=== PATIENT | female | born 1945 | race Caucasian/White ===

== ENCOUNTER → 2020-02-27 09:12 | Outpatient (CLI) | payer MEDICARE, SELFPAY ==
--- NOTE | ~2020-02-27 | XR_ITS ---
EXAMINATION: XR knee RT 3V DATE: 02/27/2020 10:18 INDICATION: Primary localized osteoarthritis of right knee. TECHNIQUE: 3 views of right knee were obtained. COMPARISON: Right knee MRI 10/10/2015 FINDINGS: Bone alignment is normal. There is moderate osteoarthritis of medial compartment and mild o steoarthritis of lateral and patellofemoral compartments. There is chondrocalcinosis of the menisci. No knee joint effusion. IMPRESSION: 1. Moderate right knee osteoarthritis. Reviewed, dictated and finalized at location A.
== END ==
PROVIDERS: PCP Internal Medicine; Visit Provider Internal Medicine
DX: M17.11 Unilateral primary osteoarthritis, right knee (principal)
CPT/HCPCS: 73562

== ENCOUNTER 2020-04-01 10:00 | Outpatient (RCR) | payer MEDICARE, SELFPAY ==
--- NOTE | 2020-03-20 15:48 | PTOPEVAL ---
Thank you for referring Litzy Goss to [facility].? The patient is scheduled to be seen for therapy? 2 x/week for 5 weeks. Please review, sign, date and return this plan of care KATHY. I agree with and certify that the following plan of care is medically necessary. Referring Physician Date Attending Provider: Tiffany Marrero, Referring Provider: *PT Outpatient Evaluation Start: 03/20/20 14:26 Freq: Status: Active Protocol: Document 03/20/20 14:27 SYLVIA (Rec: 03/20/20 15:32 SYLVIA [id number]) Therapy Assessment Status Assessment Status Assessment Status Evaluation Outpatient Past Medical History Past Medical History Source of Past Medical History Patient,Recalled from Previous Visit, Confirmed with Patient /Family Neurological History Hx Neurological Disorders No Significant History Cardiovascular History Hx Cardiac Disorders No Significant History Respiratory History Hx Asthma Yes Gastrointestinal History Hx Gastrointestinal Disorders No Significant History Genitourinary History Hx Genitourinary Disorders No Significant History Musculoskeletal History Hx Other Musculoskeletal Disorders Yes: heel and toe pain/burning sensation Evaluation Information Problem Diagnosis OA of right knee and medial meniscus tear Onset 02/18/20 Cause unknown Subjective Information She was helping her daughter Query Text:As Reported By Patient/ move, but no known injury. Family She reports limitations with ADL's, squating, bending, walking and steps. She c/o a sharp pain in the posterior aspect of right knee. She is using an oanh wrap on her knee. She is supporting the knee with a pillow at night maintaining a flexed position. Reports increased pain with driving to knee in prolonged flexed position. She likes to perform housework and yardwork. She has increased pain with the IADL's . She walks her dog daily for 8-10 blocks. She was attending [employer] classes 2x/wk prior to COVID. Diagnostic Tests X-Rays For This Problem Yes: here is moderate osteoarthritis
--- NOTE | 2020-04-03 13:56 | PCPTNOTE ---
Patient called & cancelled scheduled appointment this date due to having a Dr's appointment.
--- NOTE | 2020-04-23 08:29 | PCPTNOTE ---
Admitting Provider: Attending Provider: Tiffany Marrero, Patient:Litzy Goss Date of :1945 Discharge Note Patient has not returned for any further treatments since 04/01/2020, therefore she will be discharged at this time. Patient?s initial visit was on 03/20/2020 14:30 and she had a total of 2 visits with the remaining of her therapy visits cancelled. The goals have been not met due to limited visits attended. Thank you for referring this patient to [facility]. Please review, sign, date and return this discharge summary KATHY. I have been updated about the patient's current status and I agree with discharge from the above service at this time. Referring Physician Date
== END 2020-04-23 09:37 | disposition home or self-care (01) ==
LOC: ANHPT 10:00
PROVIDERS: PCP Internal Medicine; Visit Provider Internal Medicine
DX: M17.11 Unilateral primary osteoarthritis, right knee (principal); M23.203 Derangement of unspecified medial meniscus due to old tear or injury, right knee
CPT/HCPCS: 97035; 97110; 97112; 97140; 97162

== ENCOUNTER → 2020-04-15 12:49 | Outpatient (CLI) | payer MEDICARE, SELFPAY ==
--- NOTE | ~2020-04-15 | MR_ITS ---
EXAMINATION: MR knee RT wo con DATE: 04/15/2020 13:31 INDICATION: Right knee pain. TECHNIQUE: Magnetic resonance imaging (MRI) of the right knee was performed without intravenous contr ast. Sequences included axial PD-weighted FS FSE, coronal PD-weighted FSE and PD-weighted FS FSE, sag ittal PD-weighted FSE, and sagittal T2-weighted FS FSE. COMPARISON: Right knee radiographs 02/27/2020 FINDINGS: Medial compartment: There is a radial tear of posterior horn of medial meniscus. There is full-thickness cartilage loss o f femoral condyle involving the central articular surface. There is partial-thickness cartilage loss of tibial condyle, deep at the central and anterior articular surface with minimal subchondral edema- like marrow signal intensity. Osteophytes are noted. Lateral compartment: The lateral meniscus is normal. There is cartilage surface irregularity of tibial condyle and femoral condyle. Tiny marginal osteophytes are noted. Patellofemoral compartment: There is full-thickness cartilage loss of patella involving the medial facet. There is cartilage surf oanh irregularity of trochlea. Marginal osteophytes are noted. Ligaments and tendons: The anterior and posterior cruciate ligaments are normal. Medial collateral ligament and lateral sera ateral ligament complex are normal. There is mild patellar tendinopathy. Fluid: There is a small knee joint effusion. There is a small Mack's cyst. IMPRESSION: 1. Severe chondrosis of medial and patellofemoral compartments and mild chondrosis of lateral compart ment. 2. Tear of medial meniscus. 3. Small knee joint effusion. 4. Small Mack's cyst. Reviewed, dictated and finalized at location A. 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 Severe chondrosis of medial and patellofemoral compartments and mild chondro sis of lateral compartment. 2. Tear of medial meniscus. 3. Small knee joint effusion. 4. Small Mack's cyst.
== END ==
PROVIDERS: PCP Internal Medicine; Visit Provider Internal Medicine
DX: M25.561 Pain in right knee (principal); S82.143A Displaced bicondylar fracture of unspecified tibia, initial encounter for closed fracture; M22.2X1 Patellofemoral disorders, right knee; S83.241A Other tear of medial meniscus, current injury, right knee, initial encounter; M25.461 Effusion, right knee; M71.21 Synovial cyst of popliteal space [Baker], right knee
CPT/HCPCS: 73721

== ENCOUNTER 2020-12-24 11:30 | Outpatient (RCR) | payer MEDICARE, SELFPAY ==
--- NOTE | 2020-09-29 12:24 | PTOPEVAL ---
PHYSICAL THERAPY EVALUATION AND PLAN OF CARE Thank you for referring Litzy Goss to [facility] [place].? The patient is scheduled to be seen for therapy?2x/week for 4 weeks following right TKA. Please review, sign, date and return this plan of care KATHY. I agree with and certify that the following plan of care is medically necessary. Referring Physician Date Attending Provider: Osmany Medley, MD Evaluation Outpatient Past Medical History Neurological History Hx Neurological Disorders No Significant History Cardiovascular History Hx Cardiac Disorders No Significant History Respiratory History Hx Asthma Yes Gastrointestinal History Hx Gastrointestinal Disorders No Significant History Genitourinary History Hx Genitourinary Disorders No Significant History Musculoskeletal History Hx Other Musculoskeletal Disorders Yes: heel and toe pain/burning sensation Diagnosis right TKA Onset 09/22/20 Subjective Information right TKA due to knee OA. She Query Text:As Reported By Patient/ leads an active lifestyle with Family a large yard which she enjoys to work in. Self Report Pain Assessment Right Knee(s) Reported Pain Level 6 Pain Frequency Acute,Continuous Lowest Pain Intensity 2 Greatest Pain Intensity 7 Additional Pain Comments post treatment: 5/10 pain in right knee. Pain Score Pain Score 6: Self Report Interventions Used Interventions Used By Clinicians Exercise,Manual Therapy Techniques Pain Relief Interventions Used By Ice,Medication Patient Lower Extremity Range of Motion Knee Range of Motion Right Knee Flexion Range of Motion - Active 66 Knee Extension Range of Motion - Active -16 Query Text: Lower Extremity Muscle Strength Testing Hip Strength Right Hip Flexion Strength 4- Good - Hip Extension Strength 3+ Fair + Hip Abduction Strength 3+ Fair + Knee Strength Right Knee Flexion Strength 3+ Fair + Knee Extension Strength 3- Fair - Edema Assessment Location Right Knee(s) Type Pitting Edema Degree 3+ (4-6 mm) Gait Assessment Gait Assessment Ambulation Assistive Devices Cane Weight Bearing Status - Left Full Weight Bearing Status - Right As Tolerated Maintains Weight Bearing Status Yes Weight Bearing Comment cues for using cane in left hand and coordination Ambulation Distance 143 Query Text:(Feet) Ambulation Speed (feet/second) 1.9 Ambulation Destination In Gym Ambulation Ability
--- NOTE | 2020-10-27 15:10 | PTOPEVAL ---
PHYSICAL THERAPY PROGRESS REPORT AND PLAN OF CARE UPDATE Thank you for referring Litzy Goss to [facility] [place].? The patient is scheduled to be seen for therapy? 2x/week for 4 weeks. Please review, sign, date and return this plan of care KATHY. I agree with and certify that the following plan of care is medically necessary. Referring Physician Date Attending Provider: Osmany Medley, MD Progress Diagnosis right TKA Onset 09/22/20 Subjective Information steadily increasing activity Query Text:As Reported By Patient/ level at home; reports worst Family pain at night and reports some insomia. She does not know if it is because of the pain or because she is no longer taking norco medication. Self Report Pain Assessment Right Knee(s) Reported Pain Level 2 Pain Description Throbbing,Tightness Pain Frequency Acute,Intermittent Lowest Pain Intensity 2 Greatest Pain Intensity 9 Pain Score Pain Score 2: Self Report Interventions Used Interventions Used By Clinicians Electrical Stimulation, Exercise,Manual Therapy Techniques Pain Relief Interventions Used By Ice,Medication Patient Lower Extremity Range of Motion Knee Range of Motion Right Knee Flexion Range of Motion - Active 118 Knee Extension Range of Motion - Active -11 Query Text: Lower Extremity Muscle Strength Testing Hip Strength Right Hip Flexion Strength 5 Normal Hip Extension Strength 4 Good Hip Abduction Strength 4 Good Hip Lateral Rotation Strength 3+ Fair + Knee Strength Right Knee Flexion Strength 4+ Good + Knee Extension Strength 4- Good - Palpation Assessment Palpation Palpation tender to palpation along right ITB Gait Assessment Gait Assessment Ambulation Assistive Devices None Weight Bearing Status - Left Full Weight Bearing Status - Right As Tolerated Maintains Weight Bearing Status Yes Ambulation Destination In Gym Ambulation Ability Independent Stair Climbing Assessment Stair Climbing Assessment Stair Climbing Assistive Devices Railings Weight Bearing Status - Left Full Weight Bearing Status - Right As Tolerated Maintains Weight Bearing Status Yes Number of Steps Climbed (Steps) 4 Number of Repetitions (Repetitions) 4 Technique Alternating Steps Stair Climbing Direction Both Up and Down Stair Climbing Ability Independent Stair Climbing Comments using rails to assist in
--- NOTE | 2020-11-30 11:02 | PTOPEVAL ---
PHYSICAL THERAPY PROGRESS REPORT AND PLAN OF CARE UPDAT E Thank you for referring Litzy Goss to [facility].? The patient is scheduled to be seen for therapy? 1-2x/week for 4 weeks. Please review, sign, date and return this plan of care KATHY. I agree with and certify that the following plan of care is medically necessary. Referring Physician Date Attending Provider: Osmany Medley, MD Diagnosis right TKA Onset 09/22/20 Subjective Information reports that she is not 100% Query Text:As Reported By Patient/ yet. States that to be 100% Family she wants to be able to walk like a normal person and for the knee to not be uncomfortable. States that she can push herself for about 3- 4 hours of work/walking before she needs to stop and sit down. Self Report Pain Assessment Right Knee(s) Reported Pain Level 0 Pain Description Tightness Pain Frequency Acute,Intermittent Pain Score Pain Score 0: Self Report Interventions Used Interventions Used By Clinicians Electrical Stimulation, Exercise,Manual Therapy Techniques Pain Relief Interventions Used By Ice,Medication Patient Lower Extremity Range of Motion Knee Range of Motion Right Knee Flexion Range of Motion - Active 118 Knee Extension Range of Motion - Active -8 Query Text: Lower Extremity Muscle Strength Testing Hip Strength Right Hip Flexion Strength 5 Normal Hip Extension Strength 4 Good Hip Abduction Strength 4+ Good + Hip Lateral Rotation Strength 4 Good Knee Strength Right Knee Flexion Strength 5 Normal Knee Extension Strength 4- Good - Gait Assessment Gait Pattern Assessment Gait Pattern Antalgic Gait Other Gait Observations decreased heel strike on right - instructed patient to correct Stair Climbing Assessment Stair Climbing Assessment Stair Climbing Assistive Devices Railings Weight Bearing Status - Left Full Weight Bearing Status - Right As Tolerated Maintains Weight Bearing Status Yes Number of Steps Climbed (Steps) 4 Number of Repetitions (Repetitions) 4 Technique Alternating Steps Stair Climbing Direction Both Up and Down Stair Climbing Ability Independent Stair Climbing Comments . General Exercise General Exercises Side Right Exercise Location leg Exercise Type Active,Resi
--- NOTE | 2020-12-08 15:18 | PCPTNOTE ---
Patient called & cancelled scheduled appointment this date due to not being able to make it.
--- NOTE | 2020-12-29 15:38 | PCPTNOTE ---
This treatment is being continued on visit number [id number]. Please see documentation on both accounts to view progress. Completed interventions, outcomes, and problems have been marked as Inactive to facilitate the copying of the Care plan routine for recurring accounts.
== END 2020-12-28 23:59 | disposition home or self-care (01) ==
LOC: ANHPT 11:30
PROVIDERS: PCP Internal Medicine; Visit Provider Orthopaedic Surgery
DX: Z47.1 Aftercare following joint replacement surgery (principal); Z96.651 Presence of right artificial knee joint
CPT/HCPCS: 97014; 97110; 97112; 97116; 97140; 97162; G0283

== ENCOUNTER 2021-02-01 10:00 | Outpatient (RCR) | payer MEDICARE, SELFPAY ==
--- NOTE | 2020-12-29 15:50 | PCPTNOTE ---
The treatment documented on this account is a continuation of the treatment documented on visit number [id number]. Please see documentation on both accounts to view progress. The Plan of Care has been transitioned and updated within the new V#. I have addressed and agree with the discipline specific Problems, Interventions, and Goals for the current certification period. Completed interventions, outcomes, and problems have been marked as Inactive to facilitate the copying of the Care plan routine for recurring accounts.
--- NOTE | 2020-12-30 13:24 | PTOPEVAL ---
PHYSICAL THERAPY PROGRESS REPORT Thank you for referring Litzy Goss to [facility].? The patient is scheduled to be seen for therapy? 1x/week for 4 weeks. Please review, sign, date and return this plan of care KATHY. I agree with and certify that the following plan of care is medically necessary. Referring Physician Date Attending Provider: Osmany Medley, Diagnosis right TKA Onset 09/22/20 Subjective Information continues to feel like she is Query Text:As Reported By Patient/ not quite walking normally. Family she states she is 95% there. Reports that her right foot has straightened out Pain Score Pain Score 0: Self Report Lower Extremity Range of Motion Knee Range of Motion Right Knee Flexion Range of Motion - Active 122 Knee Extension Range of Motion - Active -5 Query Text: Lower Extremity Muscle Strength Testing Hip Strength Right Hip Flexion Strength 5 Normal Hip Extension Strength 4 Good Hip Abduction Strength 4 Good Knee Strength Right Knee Flexion Strength 4+ Good + Knee Extension Strength 4+ Good + Palpation Assessment Palpation Palpation improved tenderness to right ITB, some thickness noted distal right quadriceps and VMO General Exercise Exercise Description partial range SLR with Query Text:Record Sets, Reps, emphasis on quad set, inhibit Resistance, and Position ankle SLR on elbows partial range with quad set x10 -SLR propped on hands partial range with quad set x10 -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
--- NOTE | 2021-01-12 14:04 | PCPTNOTE ---
Patient did not show up for scheduled appointment this date; called and left voicemail for reminder call on next appointment MondayJanuary 25 @11am.
--- NOTE | 2021-02-01 10:30 | PTOPEVAL ---
PHYSICAL THERAPY DISCHARGE NOTE Thank you for referring Litzy Goss to [facility].? Please review, sign, date and return this plan of care KATHY. I agree with and certify that the following plan of care is medically necessary. Referring Physician Date Attending Provider: Osmany Medley, MD Discharge Diagnosis right TKA Onset 09/22/20 Subjective Information states that she continues to Query Text:As Reported By Patient/ have a soreness in the right Family knee. There is an ache as opposed to pain. Self Report Self Report Pain Level 0 Pain Score Pain Score 0: Self Report Lower Extremity Range of Motion Knee Range of Motion Right Knee Flexion Range of Motion - Active 123 Knee Extension Range of Motion - Active -5 Query Text: Lower Extremity Muscle Strength Testing Hip Strength Right Hip Flexion Strength 5 Normal Hip Extension Strength 4+ Good + Hip Abduction Strength 4+ Good + Knee Strength Right Knee Flexion Strength 5 Normal Knee Extension Strength 5 Normal Gait Assessment Gait Pattern Assessment Gait Pattern No Deviations/Normal Stair Climbing Assessment Stair Climbing Assessment Stair Climbing Assistive Devices Railings Maintains Weight Bearing Status Yes Number of Steps Climbed (Steps) 4 Number of Repetitions (Repetitions) 4 Technique Alternating Steps Stair Climbing Direction Both Up and Down Stair Climbing Ability Independent General Exercises Side Right Exercise Location leg Exercise Type Active,Resistive,Stretching Exercise Description REVIEWED HEP; continue to Query Text:Record Sets, Reps, peform HEP for several months; Resistance, and Position reassured of how well she is doing including further education on expectations for recovery from this point on. PT Clinical Summary Litzy is a 75 yo female 16 weeks s/p right TKA. She demonstrates normal gait pattern, excellent knee ROM and strength and states she is able to perform function as she would like to at home. PT Services Indicated Yes Rehabilitation Potential Excellent Patient/Caregiver's Personal Goals for increase activity levels Rehabilitation Potential Barriers to Goal Achievements None Support Requirements For Optimal None [place] Patient/Caregiver Informed of Benefits/ Yes
== END 2021-03-15 11:23 | disposition home or self-care (01) ==
LOC: ANHPT 10:00
PROVIDERS: PCP Internal Medicine; Visit Provider Orthopaedic Surgery
DX: Z47.1 Aftercare following joint replacement surgery (principal); Z96.651 Presence of right artificial knee joint
CPT/HCPCS: 97110; 97140

== ENCOUNTER 2022-05-23 13:41 | Outpatient (CLI) | payer MEDICARE, SELFPAY ==
[2022-05-23 14:39] LABS: Influenza A QL RT-PCR Negative (Negative); Influenza B QL RT-PCR Negative (Negative); RSV RNA, RT-PCR Negative (Negative); SARS-CoV-2 RNA PCR Negative
== END 2022-05-23 13:42 | disposition home or self-care (01) ==
PROVIDERS: PCP Internal Medicine
DX: Z20.822 Contact with and (suspected) exposure to COVID-19 (principal)
CPT/HCPCS: 87637